=== PATIENT | female | born 1955 | race African-American/Black ===

== ENCOUNTER → 2019-07-10 | Emergency (ER) | payer MEDICARE ==
[2014-07-01 12:10] VITALS: BP 163/76
[~2019-07-10] MED LIST: ALBU2.5V14 NEB; ALBU2.5V8 IH; BUDE10.2 IH; CITA20TA6 PO; ERGO500027 PO; IPRA3AMP29 IH; LISI-375 PO; LORA10TA3 PO; METF500T16 PO; PRAV40TA2 PO; PROPOFOL 100 ML IV ONE; TRAM50TA PO
== END | disposition left against medical advice (07) ==
LOC: ER 10:06
DX: R41.82 Altered mental status, unspecified (principal); Z53.21 Procedure and treatment not carried out due to patient leaving prior to being seen by health care provider
CPT/HCPCS: 82947

== ENCOUNTER 2021-03-27 23:49 | Emergency (ER) | payer MEDICARE ==
[~2021-03-27] VITALS: Ht 162.6 cm; Wt 105.3 kg
[~2021-03-27 23:49] MED LIST changes: +ASPI-630 PO; +ATOR40TA59 PO; +CHOL400T36 PO; +DOCU-109 PO; +FURO40TA4 PO; +MELA10CA PO; +METO-239 PO; +MONT10TA80 PO; +MULT-47 PO; +OXYC5TAB4 PO; +PANT40TA6 PO; +POTA-121 PO; -PROPOFOL 100 ML IV ONE; +SPIR25TA5 PO; +VENL150C6 PO
--- NOTE | 2021-03-27 23:57 | PHYS DOC ---
Past History Past Medical History: Arthritis, Asthma, CAD, CHF, Constipation, COPD, Depression, Diabetes, Fibromyalgia, GERD, Hypertension, Hyperthyroid, UTI Past Surgical History: Coronary Bypass Surgery, Hysterectomy, Other Additional Past Surgical Histo: 2 Vessels, defibrillator, sweat glands, skin graft Smoking: Cigarettes, Quit Greater Than 1 Year Alcohol Use: None Drug Use: None General Adult HPI: HPI: ".. I am having some chest pain.. it goes into my mid back... been really short of breath.. more this last hour.. I know I got a bad heart... l usually follow at [facility] but I also been seen at [facility]... and ...and here.. It just more short of breath.. and the fast heart rate... ".. I have seen Dr. Piper in the past here .. or maybe it was at [facility]"... Patient is a 66 year old female who presents with above hx and complaints of tachycardia and increased dyspnea. Patient does have a past medical history of A. fib, coronary artery disease with coronary artery bypass grafting and stents. Patient also has placement of a defibrillator and pacer. Patient's bypass and's last stents was 07/11/2019. Patient does have a history of COPD, diabetes, coronary artery disease, A. fib, CHF, GERD, anxiety, hypertension, asthma, elevated cholesterol, chronic back pain and malaise. Patient denies any changes in meds. Patient denies any travel. Patient denies any specific ill contacts. Patient has currently following with Dr. Guevara at [facility] for cardiology and Dr. Vásquez for primary. Only change in medications have been stopping her potassium supplement. Patient does admit to some dietary noncompliance particularly for intake of fluids and diabetic precautions. Patient no longer smokes tobacco stopped approximately year ago after 40+ pack years. Patient notes she has not felt her defibrillator go off. Patient has completed COVID vaccination with Moderna x 2, 2nd in August, and Flu vaccination this fall last month while in the ICU here at [place]. Review of Systems: Review of Systems: Constitutional: Denies fever or chills Eyes: Denies change in visual acuity HENT: Denies nasal congestion or sore throat Respiratory: Complains of nonproductive cough and increased shortness of breath Cardiovascular: Complains of chest discomfort and increased edema GI: Denies abdominal pain, nausea, vomiting, bloody stools or diarrhea : Denies dysuria Musculoskeletal: Reports chronic back pain or joint pain Integument: Denies rash Neurologic: Denies headache, focal weakness or sensory changes Endocrine: Denies polyuria or polydipsia Lymphatic: Denies swollen glands Psychiatric: Reports anxiety Family History: Family History: Mother age 44 from complication from heart disease. Father from COPD and respiratory failure at age 69. Current Medications: Current Meds: See nursing for home meds. Allergies: Allergies: Allergies Coded Allergies Type Severity Reaction Last Updated Verified carvedilol Allergy Unknown 02/22/21 Yes Physical Exam: PE: Constitutional: Moderate acute distress, non-toxic appearance. [] HENT: Normocephalic, atraumatic, bilateral external ears normal, oropharynx moist, no oral exudates, nose normal. [] Eyes: PERRLA, EOMI, conjunctiva normal, no discharge. [] Neck: Normal range of motion, no tenderness, supple, no stridor. [] Patient has JVD in the sitting position. Patient unable to lay down because of shortness of breath. Cardiovascular: Tachycardia heart rate, irregular regular rhythm, no murmur, PMI to the left, monitor shows a A. fib pattern with rapid ventricular response in the 160s to 180 Lungs & Thorax: Bilateral breath sounds equal apex with scattered wheezes throughout and by basilar crackles on auscultation []. It has midline coronary artery by pass scar and pacer defibrillator left upper chest wall anterior. Abdomen: Bowel sounds normal, soft, no tenderness, no masses, no pulsatile masses. Obese. Old surgery scar.-History neurectomy Skin: Warm, mild diaphoretic, no erythema, no rash. Scars on both legs from skin grafts. Scars bilateral axillary Back: Chronic mid back tenderness, no CVA tenderness. [] Extremities: No tenderness, no cyanosis, no clubbing, ROM intact, bilateral lower leg 2+ edema. Scars on right knee Neurologic: Alert and oriented X 3, moves all extremities on request, does have distal sensory, no new focal deficits noted. [] Psychologic: Affect anxious, judgement normal, mood depressed EKG: EKG: My interpretation EKG shows a ventricular rate of 162 with A. fib. Rapid ventricular response-strain pattern. No pacer defibrillator findings. Time of EKG is 2357. [] Radiology/Procedures: Radiology/Procedures: [][address] [address] IMAGING REPORT Signed PATIENT: ELIU CARSON ACCOUNT: [id number] : 1955 LOCATION: ER AGE: 66 SEX: F EXAM STATUS: REG ER ORD. PHYSICIAN: CRISTINE MUÑOZ MD REASON: cp PROCEDURE: PORTABLE CHEST 1V XR CHEST 1V Clinical Indication: Reason: cp / Spl. Instructions: / History: Comparison: AP chest February 22, 2021. Findings: Median sternotomy wires. Left atrial appendage occlusion device. There is left chest dual-chamber ICD. The cardiac silhouette is stable. There are moderate bilateral interstitial opacities. There are small bilateral pleural effusions. There is no pneumothorax. IMPRESSION: 1. Moderate bilateral interstitial opacities may be pulmonary edema, pneumonia, or atelectasis. 2. Small bilateral pleural effusions. Electronically signed by: Archie Powell MD (03/28/2021 1:08 AM) [facility] DICTATED AND SIGNED BY: ARCHIE POWELL MD DATE: 03/28/21 010 CC: CRISTINE MUÑOZ MD; SHAILA BARRIOS MD ~MTH0 0 Heart Score: C/O Chest Pain: Yes HEART Score for Chest Pain: HEART Score for Chest Pain Response (Comments) Value History Highly Suspicious 2 ECG Nonspecific Repolarizatio 1 Age >45 - < 65 1 Risk Factors 1 or 2 Risk Factors 1 Troponin >1-<3x Normal Limit 1 Total 6 Risk Factors: Risk Factors: DM, Current or recent (<one month) smoker, HTN, HLP, family history of CAD, obesity. Risk Scores: Score 0 - 3: 2.5% MACE over next 6 weeks - Discharge Home Score 4 - 6: 20.3% MACE over next 6 weeks - Admit for Clinical Observation Score 7 - 10: 72.7% MACE over next 6 weeks - Early Invasive Strategies Course & Med Decision Making: Course & Med Decision Making Pertinent Labs and Imaging studies reviewed. (See chart for details) Patient's A. fib with rapid ventricular response ventricular rate lowered with Cardizem drip. This discussed presentation with Dr. Umaña. Patient requesting that here at [facility]. Discussed labs, chest xray ect. with pt. Pt. requesting admit here and no transfer. 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 0100 Am ( New time) Discussed presentation, testing and treatment plan with Dr. Umaña. Patient transferred to [facility] for further evaluation. Plan careful diuresis in light of her critical hypokalemia until transfer to [facility]. Critical care time 90 minutes. Impression: 1. A. fib with rapid ventricular response 2. Acute on chronic diastolic dysfunction BNP 6000 0 75 3. Critical hypokalemia 2.7 4. Hyponatremia 133 5. Diabetes glucose 275 6. Elevated AST and ALT and alk phos. 44/94/134 7. Elevated troponin += 110 8. Renal insufficiency BUN 23 creatinine 1.1 [] Emma Disclaimer: Emma Disclaimer: This electronic medical record was generated, in whole or in part, using a voice recognition dictation system. Departure Departure: Referrals: SHAILA BARRIOS MD (PCP) Emma Disclaimer This chart was dictated in whole or in part using Voice Recognition software in a busy, high-work load, and often noisy Emergency Department environment. It may contain unintended and wholly unrecognized errors or omissions. CRISTINE MUÑOZ MD Mar 27, 2021 23:57
[2021-03-28] MEDS ORDERED: IV NORMAL SALINE 100ML 100 ML ONE (00:32)
[2021-03-28 00:50] LABS: BASO % 0 % (0-3); EOS # 0.1 x10^3/uL (0.0-0.7); EOS % 1 % (0-3); HEMATOCRIT 38.3 % (36.0-47.0); HEMOGLOBIN 12.2 g/dL (12.0-15.5); LYMPH # 2.9 x10^3/uL (1.0-4.8); LYMPH % 35 % (24-48); MEAN CORPUSCULAR HEMOGLOBIN 27 pg (25-35); MEAN CORPUSCULAR HGB CONC 32 g/dL (31-37); MEAN CORPUSCULAR VOLUME 84 fL (79-100); MONO # 0.6 x10^3/uL (0.0-1.1); MONO % 7 % (0-9); NEUT # 4.9 x10^3uL (1.8-7.7); NEUT % 57 % (31-73); PLATELET COUNT 271 x10^3/uL (140-400); RED BLOOD COUNT 4.56 x10^6/uL (3.50-5.40); RED CELL DISTRIBUTION WIDTH 16.9 % (11.5-14.5); WHITE BLOOD COUNT 8.6 x10^3/uL (4.0-11.0)
[2021-03-28] MEDS: dilTIAZem 25 MG/5 ML VIAL IVP ONE (00:51)
[2021-03-28] MEDS: dilTIAZem VIAL 125 MG in IV NORMAL SALINE 100ML 100 ML IV ONE (00:52)
[2021-03-28] MEDS: ASPIRIN CHEWABLE 81 MG TABLET. PO ONE (00:52)
[2021-03-28 01:07] LABS: ALBUMIN 3.5 g/dL (3.4-5.0); CALCIUM 8.4 mg/dL (8.5-10.1); CREATININE 1.1 mg/dL (0.6-1.0); DIRECT BILIRUBIN 0.3 mg/dL (0.0-0.2); GFR 60.5; MAGNESIUM 1.7 mg/dL (1.8-2.4); TOTAL BILIRUBIN 0.7 mg/dL (0.2-1.0); TOTAL PROTEIN 6.7 g/dL (6.4-8.2)
[2021-03-28 01:11] LABS: POTASSIUM 2.7 mmol/L (3.5-5.1)
--- NOTE | 2021-03-28 01:11 | RAD ---
XR CHEST 1V Clinical Indication: Reason: cp / Spl. Instructions: / History: Comparison: AP chest February 22, 2021. Findings: Median sternotomy wires. Left atrial appendage occlusion device. There is left chest dual-chamber ICD . The cardiac silhouette is stable. There are moderate bilateral interstitial opacities. There are sm all bilateral pleural effusions. There is no pneumothorax. IMPRESSION: 1. Moderate bilateral interstitial opacities may be pulmonary edema, pneumonia, or atelectasis. 2. Small bilateral pleural effusions. Electronically signed by: Archie Powell MD (03/28/2021 1:08 AM) [facility]
--- NOTE | 2021-03-28 01:15 | EKG ---
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
[2021-03-28] MEDS: POTASSIUM CHLORIDE 20MEQ 100 ML IV SCH (01:26)
[2021-03-28] MEDS ORDERED: POTASSIUM CHLORIDE 20 MEQ TABLET.ER. PO ONE (01:29)
[2021-03-28] MEDS ORDERED: MAGNESIUM HYDROXIDE 2,400 MG/30 ML ORAL.SUSP. ONE (01:29)
[2021-03-28] MEDS: MAGNESIUM HYDROXIDE 2,400 MG/30 ML ORAL.SUSP. PO ONE (01:31)
[2021-03-28] MEDS: POTASSIUM CHLORIDE 20 MEQ TABLET.ER. PO ONE (01:31)
[2021-03-28] MEDS: POTASSIUM CHLORIDE 10MEQ 100 ML IV SCH (01:46)
[2021-03-28] MEDS: FUROSEMIDE 40 MG/4 ML VIAL IVP ONE (01:47)
[2021-03-28] MEDS: MORPHINE SULFATE 4 MG/ML DISP.SYRIN. IV ONE (01:47)
[2021-03-28] MEDS: ONDANSETRON PF 4 MG/2 ML VIAL. IVP ONE (02:08)
[2021-03-28 02:25] VITALS: BP 119/65
[2021-03-28] MEDS: ENOXAPARIN ** NOTE DOSE ** SYRINGE SQ ONE (02:30)
[2021-03-28 10:40] LABS: THYROID STIM HORMONE (TSH) 1.256 uIU/mL (0.358-3.740)
== END 2021-03-28 02:33 | disposition short-term general hospital (02) ==
LOC: MERGE 23:49 → ER 23:49
DX: I48.20 Chronic atrial fibrillation, unspecified (principal); E87.6 Hypokalemia; E87.1 Hypo-osmolality and hyponatremia; R77.8 Other specified abnormalities of plasma proteins; R79.89 Other specified abnormal findings of blood chemistry; N28.9 Disorder of kidney and ureter, unspecified; M19.90 Unspecified osteoarthritis, unspecified site; J44.9 Chronic obstructive pulmonary disease, unspecified; I25.810 Atherosclerosis of coronary artery bypass graft(s) without angina pectoris; I11.0 Hypertensive heart disease with heart failure; I50.9 Heart failure, unspecified; F32.9 Major depressive disorder, single episode, unspecified; E11.9 Type 2 diabetes mellitus without complications; M79.7 Fibromyalgia; K21.9 Gastro-esophageal reflux disease without esophagitis; E05.90 Thyrotoxicosis, unspecified without thyrotoxic crisis or storm; Z20.822 Contact with and (suspected) exposure to COVID-19; Z87.440 Personal history of urinary (tract) infections; Z87.891 Personal history of nicotine dependence; Z88.8 Allergy status to other drugs, medicaments and biological substances
CPT/HCPCS: 36415; 71045; 80048; 80061; 80076; 82550; 83690; 83735; 83880; 84443; 84484; 85025; 85379; 85610; 85730; 87426; 93005; 96365; 96366; 96368; 96372; 96375; 96376; 99285; C9803; J1650; J1940; J2270; J2405; J3480; J3490; U0003; 99291-25

== ENCOUNTER 2021-05-03 20:07 | Emergency (ER) | payer MEDICARE ==
[~2021-05-03] VITALS: Ht 162.6 cm; Wt 100.0 kg
--- NOTE | 2021-05-03 20:12 | PHYS DOC ---
Past History Past Medical History: Arthritis, Asthma, CAD, CHF, Constipation, COPD, Depression, Diabetes, Fibromyalgia, GERD, Hypertension, Hyperthyroid, UTI Past Surgical History: Coronary Bypass Surgery, Hysterectomy, Knee Replacement, Other Additional Past Surgical Histo: 2 Vessels, defibrillator, sweat glands, skin graft Smoking: Cigarettes, Quit Greater Than 1 Year Alcohol Use: None Drug Use: None Adult General HPI HPI Patient is a 66-year-old female who presents after a fall today after tripping on her house slippers. States that this is her third fall in the last few weeks. Denies any loss of consciousness, headaches, changes in vision, neck pain, numbness/weakness/tingling, trouble sitting, standing or walking. Endorses some central chest wall and lateral chest wall pain, 5 out of 10, dull and achy in nature and pain around her bellybutton, dull and achy in nature with no radiation. Denies any dyspnea on exertion, orthopnea, PND or edema. Denies any recent traumas other than the falls, travels, fevers, known ill contacts. States she is taking all her medications as prescribed but is not taking anything for anticoagulation. Review of Systems Review of Systems Review of systems otherwise unremarkable except noted in HPI Allergies Allergies Allergies Coded Allergies Type Severity Reaction Last Updated Verified carvedilol Allergy Unknown 03/29/21 Yes Physical Exam Physical Exam Constitutional: Well developed, well nourished, no acute distress, non-toxic appearance. [] HENT: Normocephalic, atraumatic, bilateral external ears normal, oropharynx moist, no oral exudates, nose normal. [] Eyes: PERRLA, EOMI, conjunctiva normal, no discharge. [] Neck: Normal range of motion, no tenderness, supple, no stridor. [] Cardiovascular:Heart rate regular rhythm, no murmur [] Lungs & Thorax: Bilateral breath sounds clear to auscultation, tenderness to palpation over the sternum lateral left rib cage [] Abdomen: soft, mild umbilical tenderness with no rebound or guarding, no masses, no pulsatile masses. [] Skin: Warm, dry, no erythema, no rash. [] Back: No tenderness, no CVA tenderness. [] Extremities: No tenderness, no cyanosis, no clubbing, ROM intact, no edema. [] Neurologic: Alert and oriented X 3, normal motor function, normal sensory function, able to sit, stand and walk without issue no focal deficits noted. [] Psychologic: Affect normal, judgement normal, mood normal. [] EKG EKG [] Radiology/Procedures Radiology/Procedures [] CT chest without contrast: There is peripheral linear opacities in the lungs bilaterally. There is previous median sternotomy. There is a tiny effusion on the right. There is no mediastinal lymphadenopathy or hematoma. There is no hilar lymphadenopathy. Impression: 1. Tiny right pleural effusion. 2. Mild bilateral infiltrates likely discoid atelectasis. End Impression CT ABDOMEN and pelvis without IV CONTRAST: Findings: Liver: Unremarkable Spleen: Unremarkable Pancreas: Unremarkable Adrenal Glands: Unremarkable Kidneys: Since bilaterally Evaluation of stomach and bowel is limited without oral contrast. Evaluation of solid organs is limited without IV contrast. There is no mass or lymphadenopathy. There is no free air. There is no free fluid. The bladder appears normal. The gallbladder is not fully distended with a slight amount of fluid around the gallbladder. The appendix is normal. Impression: Possible minimal pericholecystic fluid but no stones or wall thickening seen. End impression Heart Score C/O Chest Pain: No Risk Factors: Risk Factors: DM, Current or recent (<one month) smoker, HTN, HLP, family history of CAD, obesity. Risk Scores: Risk Factors: DM, Current or recent (<one month) smoker, HTN, HLP, family history of CAD, obesity. Course & Med Decision Making Course & Med Decision Making Patient is a 66-year-old female who presents after a fall Vital signs not concerning. Physical exam noted above. Placed on the monitor with IV access established. Given pain medicine. Laboratory analysis not concerning. CT of the head not concerning. CT of the chest abdomen and pelvis with tiny right pleural effusion and discoid atelectasis. On reassessment patient feeling better after pain medicine. Discussed all findings with family. Advised on symptom management at home. Advised to follow-up in the morning with primary care physician. Gave strict return precautions to the ED. Patient grateful, verbalized understanding and agreed with plan of discharge. [] Dragon Disclaimer Dragon Disclaimer This electronic medical record was generated, in whole or in part, using a voice recognition dictation system. Departure Departure: Impression: Primary Impression: Fall Additional Impressions: Chest wall pain Abdominal pain Pleural effusion Disposition: HOME / SELF CARE / HOMELESS Condition: GOOD Referrals: SHAILA BARRIOS MD (PCP) Patient Instructions: Fall Prevention and Home Safety, Pleural Effusion, RICE - Routine Care for Injuries Additional Instructions: Thank you for coming into the emergency department tonight and allowing us to take care of you. Please read the attached information carefully to go back over some of the things we discussed. Please continue all your medications at home as prescribed. You can use Tylenol at home as needed and tolerated. If you are allowed to take ibuprofen, not allergic and are able to tolerated she can add ibuprofen as well. He can also use ice. It is very important that you follow-up in the morning with the primary care physician to update on your ED visit and set up a follow-up as soon as you can. Please come back with new or concerning symptoms. Problem Qualifiers JODY NEELY MD May 03, 2021 20:11
[2021-05-03] MEDS ORDERED: ACETAMINOPHEN 500 MG TABLET PO ONE (21:15)
--- NOTE | 2021-05-03 22:07 | RAD ---
CT chest abdomen and pelvis without contrast: History: Pain status post fall Axial helical images of the chest, abdomen and pelvis were obtained without IV contrast. Comparison: none CT chest without contrast: There is peripheral linear opacities in the lungs bilaterally. There is previous median sternotomy. T here is a tiny effusion on the right. There is no mediastinal lymphadenopathy or hematoma. There is no hilar lymphadenopathy. Impression: 1. Tiny right pleural effusion. 2. Mild bilateral infiltrates likely discoid atelectasis. End Impression CT ABDOMEN and pelvis without IV CONTRAST: Findings: Liver: Unremarkable Spleen: Unremarkable Pancreas: Unremarkable Adrenal Glands: Unremarkable Kidneys: Since bilaterally Evaluation of stomach and bowel is limited without oral contrast. Evaluation of solid organs is limit ed without IV contrast. There is no mass or lymphadenopathy. There is no free air. There is no free fluid. The bladder appears normal. The gallbladder is not fully distended with a slight amount of fluid around the gallbladder. The appendix is normal. Impression: Possible minimal pericholecystic fluid but no stones or wall thickening seen. End impression PQRS Compliance Statement: One or more of the following individualized dose reduction techniques were utilized for this examinat ion: 1. Automated exposure control 2. Adjustment of the mA and/or kV according to patient size 3. Use of iterative reconstruction technique Electronically signed by: Akash Givens III, MD (05/03/2021 10:05 PM) [facility]
[2021-05-03 22:11] LABS: BASO # 0.1 x10^3/uL (0.0-0.2); BASO % 1 % (0-3); EOS # 0.1 x10^3/uL (0.0-0.7); EOS % 3 % (0-3); HEMATOCRIT 36.4 % (36.0-47.0); HEMOGLOBIN 11.4 g/dL (12.0-15.5); LYMPH # 1.3 x10^3/uL (1.0-4.8); LYMPH % 27 % (24-48); MEAN CORPUSCULAR HEMOGLOBIN 26 pg (25-35); MEAN CORPUSCULAR HGB CONC 31 g/dL (31-37); MEAN CORPUSCULAR VOLUME 83 fL (79-100); MONO # 0.4 x10^3/uL (0.0-1.1); MONO % 8 % (0-9); NEUT # 2.8 x10^3uL (1.8-7.7); NEUT % 61 % (31-73); PLATELET COUNT 268 x10^3/uL (140-400); RED BLOOD COUNT 4.38 x10^6/uL (3.50-5.40); RED CELL DISTRIBUTION WIDTH 17.8 % (11.5-14.5); WHITE BLOOD COUNT 4.6 x10^3/uL (4.0-11.0)
[2021-05-03 22:19] LABS: CREATININE 1.5 mg/dL (0.6-1.0); GFR 42.3; POTASSIUM 4.5 mmol/L (3.5-5.1)
--- NOTE | 2021-05-03 23:09 | RAD ---
EXAM: CT Head without IV contrast CLINICAL HISTORY: Reason: fall / Spl. Instructions: / History: COMPARISON: None. TECHNIQUE: Routine CT of the head without contrast. PQRS compliance statement - One or more of the following individualized dose reduction techniques wer e utilized for this study: 1. Automated exposure control 2. Adjustment of the mA and/or kV according to patient size 3. Use of iterative reconstruction technique FINDINGS: There is no evidence of hemorrhage, mass or extra-axial fluid collection. Garcia-white differentiation is maintained with no evidence of edema. There is no mass effect or shift of the intracranial structures. The ventricles, basilar cisterns and cortical sulci are normal in size and configuration for the singh ents stated age. The cerebellum and brainstem are unremarkable. The calvarium demonstrates no evidence of fracture or focal lesion. There is normal aeration of the visualized paranasal sinuses and mastoid air cells. The visualized portions of the orbits are normal. IMPRESSION: No evidence for acute intracranial process. Electronically signed by: Yoshi Hood MD (05/03/2021 11:07 PM) [facility]
[2021-05-03] MEDS ORDERED: oxyCODONE IR 5 MG TABLET PO ONE (23:15)
[2021-05-03 23:30] VITALS: BP 107/60
--- NOTE | 2021-05-04 08:23 | EKG ---
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
== END 2021-05-03 23:30 | disposition home or self-care (01) ==
LOC: ER 20:07
DX: R07.89 Other chest pain (principal); R10.33 Periumbilical pain; J90 Pleural effusion, not elsewhere classified; M19.90 Unspecified osteoarthritis, unspecified site; I25.810 Atherosclerosis of coronary artery bypass graft(s) without angina pectoris; I11.9 Hypertensive heart disease without heart failure; I50.9 Heart failure, unspecified; J44.9 Chronic obstructive pulmonary disease, unspecified; E11.9 Type 2 diabetes mellitus without complications; M79.7 Fibromyalgia; E03.9 Hypothyroidism, unspecified; Z87.440 Personal history of urinary (tract) infections; Z90.710 Acquired absence of both cervix and uterus; Z88.8 Allergy status to other drugs, medicaments and biological substances; W18.09XA Striking against other object with subsequent fall, initial encounter; Y93.89 Activity, other specified; Y92.89 Other specified places as the place of occurrence of the external cause; Y99.8 Other external cause status
CPT/HCPCS: 36415; 70450; 71250; 74176; 80048; 84484; 85025; 93005; 96372; 99285; J3010

== ENCOUNTER 2021-05-04 22:50 | Emergency (ER) | payer MEDICARE ==
[~2021-05-04] VITALS: Ht 162.6 cm; Wt 100.0 kg
--- NOTE | 2021-05-04 23:24 | PHYS DOC ---
Past History Past Medical History: Arthritis, Asthma, CAD, CHF, Constipation, COPD, Depression, Diabetes, Fibromyalgia, GERD, Hypertension, Hyperthyroid, UTI (CRISTINE MUÑOZ MD) Past Surgical History: Hysterectomy, Knee Replacement, Other Additional Past Surgical Histo: defibrillator, EGD, CABG (CRISTINE MUÑOZ MD) Smoking: Cigarettes, Quit Greater Than 1 Year Alcohol Use: None Drug Use: None (CRISTINE MUÑOZ MD) General Adult HPI: HPI: Patient is a 66 year old female who presents with above hx and complaints. See charting by Wilmer Turner for this pt. (CRISTINE MUÑOZ MD) Review of Systems: Review of Systems: Constitutional: Denies fever or chills Eyes: Denies change in visual acuity HENT: Denies nasal congestion or sore throat Respiratory: Denies cough or shortness of breath Cardiovascular: Denies chest pain or edema GI: Denies abdominal pain, nausea, vomiting, bloody stools or diarrhea : Denies dysuria Musculoskeletal: Denies back pain or joint pain Integument: Denies rash Neurologic: Denies headache, focal weakness or sensory changes Endocrine: Denies polyuria or polydipsia Lymphatic: Denies swollen glands Psychiatric: Denies depression or anxiety (CRISTINE MUÑOZ MD) Allergies: Allergies: Allergies Coded Allergies Type Severity Reaction Last Updated Verified carvedilol Allergy Unknown 05/03/21 Yes (CRISTINE MUÑOZ MD) Physical Exam: PE: Constitutional: Well developed, well nourished, no acute distress, non-toxic appearance. [] HENT: Normocephalic, atraumatic, bilateral external ears normal, oropharynx moist, no oral exudates, nose normal. [] Eyes: PERRLA, EOMI, conjunctiva normal, no discharge. [] Neck: Normal range of motion, no tenderness, supple, no stridor. [] Cardiovascular:Heart rate regular rhythm, no murmur [] Lungs & Thorax: Bilateral breath sounds clear to auscultation [] Abdomen: Bowel sounds normal, soft, no tenderness, no masses, no pulsatile masses. [] Skin: Warm, dry, no erythema, no rash. [] Back: No tenderness, no CVA tenderness. [] Extremities: No tenderness, no cyanosis, no clubbing, ROM intact, no edema. [] Neurologic: Alert and oriented X 3, normal motor function, normal sensory function, no focal deficits noted. [] Psychologic: Affect normal, judgement normal, mood normal. [] (CRISTINE MUÑOZ MD) EKG: EKG: [] (CRISTINE MUÑOZ MD) Radiology/Procedures: Radiology/Procedures: [] (CRISTINE MUÑOZ MD) Heart Score: Risk Factors: Risk Factors: DM, Current or recent (<one month) smoker, HTN, HLP, family history of CAD, obesity. Risk Scores: Score 0 - 3: 2.5% MACE over next 6 weeks - Discharge Home Score 4 - 6: 20.3% MACE over next 6 weeks - Admit for Clinical Observation Score 7 - 10: 72.7% MACE over next 6 weeks - Early Invasive Strategies (CRISTINE MUÑOZ MD) Course & Med Decision Making: Course & Med Decision Making Pertinent Labs and Imaging studies reviewed. (See chart for details) [] (CRISTINE MUÑOZ MD) Dragon Disclaimer: Dragon Disclaimer: This electronic medical record was generated, in whole or in part, using a voice recognition dictation system. (CRISTINE MUÑOZ MD) Departure Departure: Referrals: SHAILA BARRIOS MD (PCP) CRISTINE MUÑOZ MD May 04, 2021 23:24 OLGA TURNER May 04, 2021 23:52
[2021-05-04 23:31] VITALS: BP 123/74
--- NOTE | 2021-05-04 23:57 | PHYS DOC ---
Past History Past Medical History: Arthritis, Asthma, CAD, CHF, Constipation, COPD, Depression, Diabetes, Fibromyalgia, GERD, Hypertension, Hyperthyroid, UTI Additional Past Medical Histor: chronic pain (OLGA TURNER) Past Surgical History: Hysterectomy, Knee Replacement, Other Additional Past Surgical Histo: defibrillator, EGD, CABG, right rotator cuff (OLGA TURNER) Smoking: Cigarettes, Quit Greater Than 1 Year Alcohol Use: None Drug Use: None (OLGA TURNER) General Adult EDM: Chief Complaint: MULTIPLE COMPLAINTS HPI: HPI: Patient is a 66 year old female who presents with bilateral shoulder pain. Patient rates her pain as severe and stops her from sleeping. She was seen in the emergency department yesterday status post mechanical fall secondary to low traction slippers on the stairs. Her imaging studies and work-up yesterday were reassuring, but she returns today due to persistent pain. Patient reports she takes oxycodone 5325 3 times daily for chronic pain. She reports right rotator cuff surgery in the past with deferred left rotator cuff surgery. She is unsure why the left was never performed. Patient is joined in the emergency department by her daughter. (OLGA TURNER) Review of Systems: Review of Systems: Constitutional: Denies fever or chills Eyes: Denies change in visual acuity or visual field deficits HENT: Denies nasal congestion or sore throat Respiratory: Denies cough or shortness of breath Cardiovascular: Denies chest pain or edema GI: Denies abdominal pain, nausea, vomiting, bloody stools or diarrhea : Denies dysuria or hematuria Musculoskeletal: See HPI Integument: Denies rash or other skin lesion Neurologic: Denies headache, focal weakness or sensory changes (OLGA TURNER) Current Medications: Current Meds: Current Medications Medications (Trade) Dose Ordered Sig/Jacqueline Start Time Stop Time Status Last Admin Dose Admin Ketorolac Tromethamine (Toradol 30mg Vial) 30 mg 1X ONCE 05/05/21 00:00 05/05/21 00:01 UNV Orphenadrine Citrate (Norflex) 60 mg 1X ONCE 05/05/21 00:00 05/05/21 00:01 UNV (OLGA TURNER) Allergies: Allergies: Allergies Coded Allergies Type Severity Reaction Last Updated Verified carvedilol Allergy Unknown 05/04/21 Yes (OLGA TURNER) Physical Exam: PE: Constitutional: Well developed, well nourished, patient is tearful during interview, non-toxic appearance. HENT: Normocephalic, atraumatic, bilateral external ears normal, oropharynx moist, no oral exudates, nose without deformity. Eyes: PERRLA, EOMI, conjunctiva normal, no discharge. Neck: Normal range of motion, no tenderness, supple, no stridor. Cardiovascular: Heart rate regular rhythm, no murmur. Lungs & Thorax: Bilateral breath sounds clear to auscultation. Back: No tenderness, no CVA tenderness. Extremities: Patient active range of motion limited secondary to reported pain in bilateral shoulders, passive range of motion intact and patient actively resists movement in opposite direction with 5/5 strength, no obvious deformities. Extremities otherwise no tenderness, no cyanosis, no clubbing, ROM intact, no edema. Neurovascular intact in extremities x4. Neurologic: Alert and oriented x4, no focal deficits noted. (OLGA TURNER) Current Patient Data: Vital Signs: Vital Signs Date Time Temp Pulse Resp B/P (MAP) Pulse Ox O2 Delivery O2 Flow Rate FiO2 05/04/21 23:31 98.2 18 123/74 (90) 95 (OLGA TURNER) Heart Score: C/O Chest Pain: No (OLGA TURNER) Course & Med Decision Making: Course & Med Decision Making Pertinent Labs and Imaging studies reviewed. (See chart for details) Patient was seen yesterday in the department with an unremarkable work-up. She presents today for persistent pain. She was informed on discharge yesterday that she would likely have some muscle soreness after her fall. Patient reports she is tired of being in chronic pain and is somewhat uncooperative. I offered her several different potential medications that might help including muscle relaxer and NSAID, which would not interfere with her daily oxycodone use. Patient is not agreeable to any of these medications, she states she has taken them in the past and they do not do anything for her pain. Had a long discussion about the patient's goals for her visit today. Eventually, with discussion with her daughter at bedside and myself, she agrees to try the combination of NSAID with muscle relaxer to help treat her pain after her fall yesterday. When Denise, nursing staff, administered medications, patient states that she ran out of her oxycodone prescription today. She is supposed to take 1 at bedtime, but does not have any more at home. She is picking up her new prescription tomorrow morning. She will be provided with 1 tablet here in the department. On reevaluation, patient states her pain is improved. She continues to have right-sided shoulder pain, but left is nearly resolved. Discussed with the patient that her pain level will not be 0, especially due to the nature of her chronic pain and prior surgeries. Discussed with patient providing prescription for muscle relaxer for the next few days, as she recovers from the fall. Patient is agreeable. Patient and daughter at bedside understand and are agreeable to discharge plan. (OLGA TURNER) Dragon Disclaimer: Dragon Disclaimer: This electronic medical record was generated, in whole or in part, using a voice recognition dictation system. (OLGA TURNER) Departure Departure: Impression: Primary Impression: Chronic pain of multiple sites Disposition: 01 HOME / SELF CARE / HOMELESS Condition: STABLE Referrals: SHAILA BARRIOS MD (PCP) Patient Instructions: Chronic Pain Management-Brief, Contusion, [id number], Fall Prevention and Home Safety, [id number] Scripts Orphenadrine Citrate (ORPHENADRINE CITRATE) 100 Mg Tablet.er 1 TAB PO BID for muscle pain, #10 TAB 1 Refill Prov: OLGA TURNER 05/05/21 Attending Signature Attending Signature I have participated in the care of this patient and I have reviewed and agree with all pertinent clinical information above including history, exam, and recommendations. (CRISTINE MUÑOZ MD) OLGA TURNER May 04, 2021 23:57 CRISTINE MUÑOZ MD May 05, 2021 07:29
[2021-05-05] MEDS ORDERED: ORPHENADRINE CITRATE 60 MG/2 ML VIAL. IM ONE
[2021-05-05] MEDS ORDERED: KETOROLAC 30 MG/ML VIAL. IM ONE
[2021-05-05] MEDS ORDERED: oxyCODONE/APAP 5/325 1 TAB TABLET PO ONE (00:30)
[2021-05-05] MEDS ORDERED: ORPH-16 PO (00:39)
== END 2021-05-05 00:53 | disposition home or self-care (01) ==
LOC: ER 22:50
DX: G89.29 Other chronic pain (principal); M25.511 Pain in right shoulder; M25.512 Pain in left shoulder; M19.90 Unspecified osteoarthritis, unspecified site; J44.9 Chronic obstructive pulmonary disease, unspecified; I11.0 Hypertensive heart disease with heart failure; I50.9 Heart failure, unspecified; E11.9 Type 2 diabetes mellitus without complications; M79.7 Fibromyalgia; K21.9 Gastro-esophageal reflux disease without esophagitis; E03.9 Hypothyroidism, unspecified; I25.810 Atherosclerosis of coronary artery bypass graft(s) without angina pectoris; Z87.440 Personal history of urinary (tract) infections; Z87.891 Personal history of nicotine dependence; Z88.8 Allergy status to other drugs, medicaments and biological substances
CPT/HCPCS: 96372; 99284; J1885; J2360

== ENCOUNTER 2021-07-18 22:02 | Emergency (ER) | payer MEDICARE ==
[~2021-07-18] VITALS: Ht 162.6 cm; Wt 93.5 kg
[~2021-07-18 22:02] MED LIST changes: +CLOP75TA PO; +FURO20TA3 PO; +METO50TA6 PO; +ORPH-16 PO; +OXYC5TAB2 PO
--- NOTE | 2021-07-18 22:46 | PHYS DOC ---
Past History Past Medical History: Arthritis, Asthma, CAD, CHF, Constipation, COPD, Depression, Diabetes, Fibromyalgia, GERD, Hypertension, Hyperthyroid, UTI Additional Past Medical Histor: chronic pain Past Surgical History: Other Additional Past Surgical Histo: defibrillator, EGD, CABG, right rotator cuff Smoking: Cigarettes, Quit Greater Than 1 Year Alcohol Use: None Drug Use: None General Adult EDM: Chief Complaint: SHORTNESS OF BREATH HPI: HPI: 66-year-old female presents with shortness of breath. The patient has been feeling more tired for a few days. She has also had some lower extremity swelling. She is on Lasix for this. The patient was getting home and going into the house around 8 PM tonight when she just felt significantly more short of breath and could not go any further. That is when she called EMS. Patient is currently taking antibiotic for gastric paresis as well as pneumonia. She has 2 days left on her pneumonia treatment. She has a history of COPD and CHF. The patient is on as needed 4 L of oxygen at home. She does not have to use it all the time. Patient states that her shortness of breath seems to be better at this time, but she does have an occipital headache and feels fatigued. She denies chest pain. No reported fever or chills. Review of Systems: Review of Systems: Constitutional: Denies fever or chills Eyes: Denies change in visual acuity HENT: Denies nasal congestion or sore throat Respiratory: Shortness of breath Cardiovascular: Denies chest pain or edema GI: Denies abdominal pain, nausea, vomiting, bloody stools or diarrhea : Denies dysuria Musculoskeletal: Denies back pain or joint pain Integument: Denies rash Neurologic: Headache. Denies focal weakness or sensory changes Endocrine: Denies polyuria or polydipsia Lymphatic: Denies swollen glands Psychiatric: Denies depression or anxiety Allergies: Allergies: Allergies Coded Allergies Type Severity Reaction Last Updated Verified carvedilol Allergy Intermediate 07/04/21 Yes Physical Exam: PE: Constitutional: Well developed, well nourished, obese, no acute distress, non- toxic appearance. [] HENT: Normocephalic, atraumatic, bilateral external ears normal, oropharynx moist, no oral exudates, nose normal. [] Eyes: PERRLA, EOMI, conjunctiva normal, no discharge. [] Neck: Normal range of motion, no tenderness, supple, no stridor. [] Cardiovascular: Heart rate regular rhythm, 1/6 systolic murmur [] Lungs & Thorax: Bilateral breath sounds diminished [] Abdomen: Bowel sounds normal, soft, no tenderness, no masses, no pulsatile masses. [] Skin: Warm, dry, no erythema, no rash. [] Back: No tenderness, no CVA tenderness. [] Extremities: No tenderness, no cyanosis, no clubbing, ROM intact, no edema. [] Neurologic: Alert and oriented X 3, normal motor function, normal sensory function, no focal deficits noted. [] Psychologic: Affect normal, judgement normal, mood normal. [] Current Patient Data: Vital Signs: Vital Signs Date Time Temp Pulse Resp B/P (MAP) Pulse Ox O2 Delivery O2 Flow Rate FiO2 07/18/21 22:02 97.9 75 17 124/63 (83) 100 Room Air EKG: EKG: Sinus rhythm, rate 83, leftward axis, no ST elevation or depression. [] Radiology/Procedures: Radiology/Procedures: [] Impressions: EXAM: XR CHEST 1V 07/18/2021 10:31 PM CLINICAL INDICATION: Shortness of breath COMPARISON: Chest radiograph 07/04/2021 TECHNIQUE: AP upright view of the chest FINDINGS: A pacemaker/AICD is unchanged. There are changes of median sternotomy and a left atrial appendage ligation device. Cardiomegaly and enlarged main pulmonary artery are unchanged. The lungs are well-expanded and clear. No pleural effusion or pneumothorax. No pulmonary edema. IMPRESSION: Unchanged cardiomegaly and enlarged pulmonary artery. Electronically signed by: Lindsey Morgan MD (07/19/2021 12:03 AM) [facility] DICTATED AND SIGNED BY: LINDSEY MORGAN MD DATE: 07/19/21 0001 CC: JADIEL PRIETO DO; SHAILA BARRIOS MD ~MTH0 0 Heart Score: C/O Chest Pain: No Risk Factors: Risk Factors: DM, Current or recent (<one month) smoker, HTN, HLP, family history of CAD, obesity. Risk Scores: Score 0 - 3: 2.5% MACE over next 6 weeks - Discharge Home Score 4 - 6: 20.3% MACE over next 6 weeks - Admit for Clinical Observation Score 7 - 10: 72.7% MACE over next 6 weeks - Early Invasive Strategies Course & Med Decision Making: Course & Med Decision Making Pertinent Labs and Imaging studies reviewed. (See chart for details) The patient's chest x-ray is similar to previous. EKG is negative for acute findings. Patient's labs are unremarkable. Her troponin is negative. Patient is feeling better at this time. She is not sure why she was feeling so short of breath. She has had a normal oxygen saturation on room air the entire time the emergency room. The patient feels comfortable going home. She is stable for discharge at this time. [] Dragon Disclaimer: Dragon Disclaimer: This electronic medical record was generated, in whole or in part, using a voice recognition dictation system. Departure Departure: Impression: Primary Impression: Shortness of breath Disposition: 01 HOME / SELF CARE / HOMELESS Condition: STABLE Referrals: SHAILA BARRIOS MD (PCP) Patient Instructions: Shortness of Breath, [id number] JADIEL PRIETO DO Jul 18, 2021 22:45
--- NOTE | 2021-07-18 22:53 | EKG ---
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
[2021-07-18 23:49] LABS: CLARITY,URINE CLEAR; COLOR,URINE YELLOW; GLUCOSE,URINE NEG (NEG)
[2021-07-18 23:50] LABS: BACTERIA,URINE FEW /HPF (0-FEW); NITRITE,URINE NEG (NEG); SQUAMOUS EPITHELIAL CELL,UR MOD /LPF
--- NOTE | 2021-07-19 00:06 | RAD ---
EXAM: XR CHEST 1V 07/18/2021 10:31 PM CLINICAL INDICATION: Shortness of breath COMPARISON: Chest radiograph 07/04/2021 TECHNIQUE: AP upright view of the chest FINDINGS: A pacemaker/AICD is unchanged. There are changes of median sternotomy and a left atrial ap pendage ligation device. Cardiomegaly and enlarged main pulmonary artery are unchanged. The lungs are well-expanded and clear. No pleural effusion or pneumothorax. No pulmonary edema. IMPRESSION: Unchanged cardiomegaly and enlarged pulmonary artery. Electronically signed by: Lindsey Morgan MD (07/19/2021 12:03 AM) [facility]
[2021-07-19 01:13] LABS: CALCIUM 8.4 mg/dL (8.5-10.1); CREATININE 1.1 mg/dL (0.6-1.0); GFR 60.5; POTASSIUM 3.3 mmol/L (3.5-5.1)
[2021-07-19 01:18] LABS: ALBUMIN 2.9 g/dL (3.4-5.0); ALBUMIN/GLOBULIN RATIO 0.8 (1.0-1.7); TOTAL BILIRUBIN 2.2 mg/dL (0.2-1.0); TOTAL PROTEIN 6.4 g/dL (6.4-8.2)
[2021-07-19 01:30] LABS: BASO % 1 % (0-3); EOS # 0.2 x10^3/uL (0.0-0.7); EOS % 4 % (0-3); HEMATOCRIT 37.6 % (36.0-47.0); HEMOGLOBIN 12.1 g/dL (12.0-15.5); LYMPH # 1.4 x10^3/uL (1.0-4.8); LYMPH % 34 % (24-48); MEAN CORPUSCULAR HEMOGLOBIN 26 pg (25-35); MEAN CORPUSCULAR HGB CONC 32 g/dL (31-37); MEAN CORPUSCULAR VOLUME 81 fL (79-100); MONO # 0.3 x10^3/uL (0.0-1.1); MONO % 8 % (0-9); NEUT # 2.2 x10^3uL (1.8-7.7); NEUT % 53 % (31-73); PLATELET COUNT 238 x10^3/uL (140-400); RED BLOOD COUNT 4.64 x10^6/uL (3.50-5.40); RED CELL DISTRIBUTION WIDTH 22.2 % (11.5-14.5)
[2021-07-19 02:01] LABS: ANISOCYTOSIS MARKED
[2021-07-19 02:03] LABS: SCHISTOCYTES MANY
[2021-07-19 02:05] LABS: BURR CELLS PRESENT
[2021-07-19 02:06] LABS: HYPOCHROMIA SLIGHT; MICROCYTOSIS SLIGHT; TARGET CELLS OCC
[2021-07-19 02:07] LABS: PLT ESTIMATE ADEQUATE (ADEQUATE)
[2021-07-19 02:50] VITALS: BP 126/68
== END 2021-07-19 02:55 | disposition home or self-care (01) ==
LOC: ER 22:02
DX: R06.02 Shortness of breath (principal); R51.9 Headache, unspecified; R53.83 Other fatigue; M19.90 Unspecified osteoarthritis, unspecified site; I25.10 Atherosclerotic heart disease of native coronary artery without angina pectoris; I11.0 Hypertensive heart disease with heart failure; I50.9 Heart failure, unspecified; J44.9 Chronic obstructive pulmonary disease, unspecified; E11.9 Type 2 diabetes mellitus without complications; M79.7 Fibromyalgia; K21.9 Gastro-esophageal reflux disease without esophagitis; E05.90 Thyrotoxicosis, unspecified without thyrotoxic crisis or storm; G89.29 Other chronic pain; Z87.440 Personal history of urinary (tract) infections; Z87.891 Personal history of nicotine dependence; Z88.8 Allergy status to other drugs, medicaments and biological substances
CPT/HCPCS: 36415; 71045; 80053; 81001; 84484; 85025; 87077; 87086; 87186; 93005; 99285

== ENCOUNTER 2021-08-06 05:44 | Inpatient (IN) | payer MEDICARE ==
[~2021-08-06] VITALS: Ht 162.6 cm; Wt 88.6 kg
[~2021-08-06 05:44] MED LIST changes: +CHOL10004 PO; +ERYT250T89 PO; +POTA20TA40 PO
--- NOTE | 2021-08-06 06:33 | PHYS DOC ---
Past History Past Medical History: Arthritis, Asthma, CAD, CHF, Constipation, COPD, Depression, Diabetes, Fibromyalgia, GERD, Hypertension, Hyperthyroid, UTI Additional Past Medical Histor: chronic pain Past Surgical History: Coronary Bypass Surgery, Other Additional Past Surgical Histo: defibrillator, EGD, CABG, right rotator cuff Smoking: Cigarettes, Quit Greater Than 1 Year Alcohol Use: None Drug Use: None General Adult EDM: Chief Complaint: SHORTNESS OF BREATH HPI: HPI: Patient is a 66-year-old female coming in for shortness of breath since waking this morning. Patient states she uses a CPAP at night and it was working properly. Patient denies a cough. Patient states she has had worsening lower extremity edema and foot pain that is worse on the right. Was recently hospitalized for similar symptoms. Review of Systems: Review of Systems: All other systems within normal limits except for as noted in the HPI Allergies: Allergies: Allergies Coded Allergies Type Severity Reaction Last Updated Verified carvedilol Allergy Intermediate 07/04/21 Yes I S O L A T I O N *CONTACT* Allergy Unknown 07/21/21 Yes Physical Exam: PE: Constitutional: Well developed, well nourished, no acute distress, non-toxic appearance. [] HENT: Normocephalic, atraumatic, bilateral external ears normal, nose normal. [] Eyes: PERRLA, conjunctiva normal, no discharge. [] Neck: No rigidity, supple, no stridor. [] Cardiovascular: Regular rate and rhythm, brisk cap refill [] Lungs & Thorax: Non labored symmetric respirations, bilateral expiratory wheezes Abdomen: Soft, nondistended. Skin: Warm, dry, no erythema, no rash. [] Back: Unremarkable Extremities: No deformities, range of motion grossly intact, bilateral lower extremity edema worse on right Neurologic: Alert and oriented X 3, no focal deficits noted. [] Psychologic: Affect normal, judgement normal, mood normal. [] Current Patient Data: Vital Signs: Vital Signs Date Time Temp Pulse Resp B/P (MAP) Pulse Ox O2 Delivery O2 Flow Rate FiO2 08/06/21 05:44 97.6 130 36 155/101 (119) 98 Aerosol Mask EKG: EKG: Sinus rhythm, heart rate 120 beats minute, left axis deviation, no STEMI [] Radiology/Procedures: Radiology/Procedures: [][address] [place] [address] IMAGING REPORT Signed PATIENT: ELIU CARSON ACCOUNT: [id number] : 1955 LOCATION: ER AGE: 66 SEX: F EXAM STATUS: REG ER ORD. PHYSICIAN: MATT BARNES MD REASON: copd PROCEDURE: CHEST AP ONLY AP chest. HISTORY: COPD AP view of the chest was compared with a study from July 28. The heart is enlarged. Left pacemaker is unchanged. There are right lung infiltrates. There is a right pleural effusion. There has been little interval change compared to the recent study. IMPRESSION: 1. Cardiomegaly. 2. Small right effusion. 3. Mild right lung infiltrates without change. Electronically signed by: Darrell Meyer MD (08/06/2021 7:20 AM) [id number] DICTATED AND SIGNED BY: DARRELL MEYER MD DATE: 08/06/21717 CC: MATT BARNES MD; SHAILA BARRIOS MD ~ Heart Score: C/O Chest Pain: Yes HEART Score for Chest Pain: HEART Score for Chest Pain Response (Comments) Value History Slighlty/Non-Suspicious 0 ECG Nonspecific Repolarizatio 1 Age >45 - < 65 1 Risk Factors >3 Risk Factors or Hx CAD 2 Troponin < Normal Limit 0 Total 4 Risk Factors: Risk Factors: DM, Current or recent (<one month) smoker, HTN, HLP, family history of CAD, obesity. Risk Scores: Score 0 - 3: 2.5% MACE over next 6 weeks - Discharge Home Score 4 - 6: 20.3% MACE over next 6 weeks - Admit for Clinical Observation Score 7 - 10: 72.7% MACE over next 6 weeks - Early Invasive Strategies Course & Med Decision Making: Course & Med Decision Making Pertinent Labs and Imaging studies reviewed. (See chart for details) [] Emma Disclaimer: Emma Disclaimer: This electronic medical record was generated, in whole or in part, using a voice recognition dictation system. Departure Departure: Impression: Primary Impression: Acute on chronic systolic CHF (congestive heart failure) Additional Impressions: Pneumonia Elevated d-dimer COPD (chronic obstructive pulmonary disease) Disposition: ADMITTED INPATIENT Admitting Physician: Ho, Dany Condition: STABLE Referrals: SHAILA BARRIOS MD (PCP) MATT BARNES MD Aug 06, 2021 06:33
--- NOTE | 2021-08-06 07:22 | RAD ---
AP chest. HISTORY: COPD AP view of the chest was compared with a study from July 28. The heart is enlarged. Left pacemaker is unchanged. There are right lung infiltrates. There is a right pleural effusion. There has been littl e interval change compared to the recent study. IMPRESSION: 1. Cardiomegaly. 2. Small right effusion. 3. Mild right lung infiltrates without change. Electronically signed by: Darrell Meyer MD (08/06/2021 7:20 AM) [id number]
[2021-08-06 07:45] LABS: BASO # 0.1 x10^3/uL (0.0-0.2); BASO % 3 % (0-3); EOS # 0.2 x10^3/uL (0.0-0.7); EOS % 5 % (0-3); HEMATOCRIT 35.6 % (36.0-47.0); LYMPH # 0.6 x10^3/uL (1.0-4.8); LYMPH % 13 % (24-48); MEAN CORPUSCULAR HEMOGLOBIN 26 pg (25-35); MEAN CORPUSCULAR HGB CONC 31 g/dL (31-37); MEAN CORPUSCULAR VOLUME 83 fL (79-100); MONO # 0.5 x10^3/uL (0.0-1.1); MONO % 9 % (0-9); NEUT # 3.4 x10^3uL (1.8-7.7); NEUT % 70 % (31-73); PLATELET COUNT 274 x10^3/uL (140-400); RED BLOOD COUNT 4.27 x10^6/uL (3.50-5.40); RED CELL DISTRIBUTION WIDTH 22.7 % (11.5-14.5); WHITE BLOOD COUNT 4.9 x10^3/uL (4.0-11.0)
[2021-08-06 07:51] LABS: CALCIUM 8.9 mg/dL (8.5-10.1); CREATININE 0.9 mg/dL (0.6-1.0); GFR 76.3; POTASSIUM 3.6 mmol/L (3.5-5.1)
[2021-08-06 08:04] LABS: ALBUMIN 2.8 g/dL (3.4-5.0); ALBUMIN/GLOBULIN RATIO 0.6 (1.0-1.7); MAGNESIUM 1.9 mg/dL (1.8-2.4); TOTAL BILIRUBIN 3.5 mg/dL (0.2-1.0); TOTAL PROTEIN 7.2 g/dL (6.4-8.2)
[2021-08-06] MEDS ORDERED: methylPREDNISolone SOD SUCC PF 125 MG/2 ML VIAL. IV ONE (09:30)
[2021-08-06] MEDS ORDERED: FUROSEMIDE 40 MG/4 ML VIAL IVP ONE ×2 (09:30→09:45)
[2021-08-06 09:48] LABS: INFLUENZA A PATIENT NEGATIVE (NEGATIVE); INFLUENZA B PATIENT NEGATIVE (NEGATIVE)
[2021-08-06] MEDS ORDERED: ACETAMINOPHEN 325 MG TABLET PO PRN (10:00)
[2021-08-06] MEDS ORDERED: ONDANSETRON PF 4 MG/2 ML VIAL. IVP PRN (10:00)
[2021-08-06 10:39] LABS: CLARITY,URINE CLEAR; COLOR,URINE AMBER; GLUCOSE,URINE NEG (NEG)
[2021-08-06 10:40] LABS: BACTERIA,URINE 0 /HPF (0-FEW); NITRITE,URINE NEG (NEG); RBC,URINE 0 /HPF (0-2); SQUAMOUS EPITHELIAL CELL,UR MOD /LPF
[2021-08-06] MEDS: POTASSIUM CHLORIDE 20 MEQ TABLET.ER. PO SCH ×2 (10:59→20:41)
[2021-08-06 11:15] VITALS: BP 120/76
--- NOTE | 2021-08-06 11:21 | HP ---
DATE OF SERVICE: 08/06/2021 ADMIT DATE: 08/06/2021 ATTENDING PHYSICIAN: Dr. Galindo. CHIEF COMPLAINT: Shortness of breath. HISTORY OF PRESENT ILLNESS: The patient is a 66-year-old female admitted through the ED with increasing shortness of breath. She has a longstanding history of congestive heart failure. Her chest x-ray shows a significant cardiomegaly. There is the presence of a pacemaker defibrillator. There is a cephalization of vessels and bilateral pleural effusions. They could not rule out pneumonia. Empiric antibiotics were given. Clinically, she has heart failure. In talking with the patient's , she drinks a lot of fluids including soda. She does not monitor weights. The reason she is drinking is because of the Effexor use, which causes significant cholinergic side effects of dry mouth. This will be held. She was given Lasix in the ED with excellent diuresis. PAST MEDICAL HISTORY: Significant for acute on chronic respiratory failure, COPD, atypical chest pain, congestive heart failure, acute on chronic, systolic. SOCIAL HISTORY: She is a nonsmoker, nondrinker. ALLERGIES: SHE HAS ALLERGIES TO CARVEDILOL. CURRENT MEDICATIONS: Include aspirin, Lipitor, Plavix, docusate, erythromycin, Lasix 40 mg p.o. daily, melatonin, metoprolol, multivitamin, oxycodone, Protonix, potassium, Aldactone, Effexor 150 mg daily and vitamin D. FAMILY HISTORY: Noncontributory. REVIEW OF SYSTEMS: Significant for the gradual dyspnea with minimal exertion. She has significant orthopnea. She has a pacemaker defibrillator. I do not have access to records indicating her last echocardiogram. Regardless, she has a diminished ejection fraction with significant cardiomegaly as well as a chest x-ray evidence of CHF. PHYSICAL EXAMINATION: GENERAL: When I saw her, this is a pleasant female who was fairly alert and oriented. VITAL SIGNS: Her initial vital signs showed a blood pressure of 140/92, pulse is 110 and regular, respirations 22 unlabored, oxygen saturation 98% on 2 liters by nasal cannula. HEENT: Head is without trauma. Pupils are reactive. Sclerae nonicteric. Oropharynx is clear. NECK: Supple, no bruits. LUNGS: Diffuse wheezing bilaterally with rales at the bases. CARDIOVASCULAR: Showed distant heart tones, tachycardic rhythm. No gallops. ABDOMEN: Soft, obese, protuberant. No organomegaly. Bowel sounds are hypoactive. EXTREMITIES: Show 2+ pitting edema. NEUROLOGIC: Focally intact. Speech is fluent. SKIN: Warm and dry. PERTINENT LABORATORY STUDIES: Her hemoglobin was 11.0 g/dL with a white count 4900. Sodium 134 mEq, potassium 3.6. BNP was 4500. Serology negative for influenza A, B and coronavirus. ASSESSMENT: 1. A 66-year-old female with acute on chronic congestive heart failure. 2. Volume overload due to dietary indiscretion. 3. Probable ischemic cardiomyopathy. I do not know what last ejection fraction was on the echocardiogram. She does see a strategic development manager at [facility]. 4. History of pacemaker defibrillator. 5. Essential hypertension, currently normotensive. 6. History of chronic obstructive pulmonary disease. PLAN: 1. Admit to the inpatient unit. 2. Diuresis. Lasix has been ordered. 3. Serial chemistries. 4. Daily weights, I's and O's. 5. Continue some home meds. 6. Diabetic diet as tolerated. ELIE/ISRAEL/LILY DR: ELIE/martin TID: [id number]
[2021-08-06 15:00] VITALS: BP 127/77
[2021-08-06] MEDS: FUROSEMIDE 40 MG/4 ML VIAL IVP SCH (16:00)
[2021-08-06] MEDS ORDERED: NITROGLYCERIN SUBLINGUAL 0.4 MG BOTTLE OF 25. SL PRN (16:30)
[2021-08-06 19:50] VITALS: BP 132/78
[2021-08-06] MEDS: ATORVASTATIN CALCIUM 20 MG TABLET PO SCH (20:40)
[2021-08-06] MEDS: MELATONIN 3 MG TABLET PO PRN (20:41)
[2021-08-06 23:15] VITALS: BP 117/72
[2021-08-07] MEDS: oxyCODONE IR 5 MG TABLET PO PRN ×2 (01:33→21:21)
[2021-08-07 05:47] VITALS: BP 103/61
[2021-08-07 06:52] LABS: BASO % 1 % (0-3); EOS % 0 % (0-3); HEMATOCRIT 35.9 % (36.0-47.0); HEMOGLOBIN 11.2 g/dL (12.0-15.5); LYMPH # 0.4 x10^3/uL (1.0-4.8); LYMPH % 8 % (24-48); MEAN CORPUSCULAR HEMOGLOBIN 26 pg (25-35); MEAN CORPUSCULAR HGB CONC 31 g/dL (31-37); MEAN CORPUSCULAR VOLUME 82 fL (79-100); MONO # 0.4 x10^3/uL (0.0-1.1); MONO % 7 % (0-9); NEUT # 4.8 x10^3uL (1.8-7.7); NEUT % 85 % (31-73); PLATELET COUNT 310 x10^3/uL (140-400); RED BLOOD COUNT 4.39 x10^6/uL (3.50-5.40); RED CELL DISTRIBUTION WIDTH 22.7 % (11.5-14.5); WHITE BLOOD COUNT 5.7 x10^3/uL (4.0-11.0)
[2021-08-07 07:00] LABS: ALBUMIN 2.6 g/dL (3.4-5.0); ALBUMIN/GLOBULIN RATIO 0.6 (1.0-1.7); CALCIUM 8.5 mg/dL (8.5-10.1); CREATININE 0.9 mg/dL (0.6-1.0); GFR 76.3; POTASSIUM 3.7 mmol/L (3.5-5.1); TOTAL BILIRUBIN 3.4 mg/dL (0.2-1.0)
[2021-08-07] MEDS: FUROSEMIDE 40 MG/4 ML VIAL IVP SCH ×2 (08:19→14:15)
[2021-08-07] MEDS: POTASSIUM CHLORIDE 20 MEQ TABLET.ER. PO SCH (08:19)
[2021-08-07] MEDS: DOCUSATE SODIUM 100 MG CAPSULE PO SCH (10:59)
[2021-08-07] MEDS: CLOPIDOGREL BISULFATE 75 MG TABLET PO SCH (11:00)
[2021-08-07] MEDS: METOPROLOL SUCC 24HR ER 25 MG TAB.ER.24H. PO SCH (11:00)
[2021-08-07] MEDS: ASPIRIN CHEWABLE 81 MG TABLET. PO SCH (11:00)
[2021-08-07] MEDS: MULTIVITAMIN with MINERAL TABLET. PO SCH (11:00)
[2021-08-07] MEDS: PANTOPRAZOLE 40 MG TABLET. PO SCH (11:00)
[2021-08-07] MEDS: POTASSIUM BICARB 20 MEQ EFFERVESCENT TABLET. PO SCH (11:01)
[2021-08-07 11:44] VITALS: BP 115/69
[2021-08-07 11:49] LABS: % BANDS 2 % (0-9); % LYMPHS 9 % (24-48); % MONOS 4 % (0-10); % SEGS 85 % (35-66)
[2021-08-07 11:50] LABS: ANISOCYTOSIS MOD; PLT ESTIMATE ADEQUATE (ADEQUATE); POIKILOCYTOSIS SLIGHT
[2021-08-07 11:53] LABS: OVALOCYTES PRESENT
[2021-08-07 15:00] VITALS: BP 98/62
[2021-08-07 19:00] VITALS: BP 113/80
[2021-08-07] MEDS: MELATONIN 3 MG TABLET PO PRN (21:20)
[2021-08-07] MEDS: ATORVASTATIN CALCIUM 20 MG TABLET PO SCH (21:21)
--- NOTE | 2021-08-07 21:47 | PN ---
DATE: 08/07/2021 ATTENDING PHYSICIAN: Dr. Galindo. SUBJECTIVE: The patient is breathing better. 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 She actually wants to go home. OBJECTIVE FINDINGS: VITAL SIGNS: Blood pressure this morning is 117/72 mmHg. She is afebrile, pulse is 94 and regular, oxygen saturation 97% on 2 liters by nasal cannula. HEENT: Head is without trauma. Pupils are reactive. Sclerae nonicteric. Oropharynx is clear. NECK: Supple, no bruits. LUNGS: Good breath sounds. Minimal crackles at the bases. CARDIOVASCULAR: Regular heart tones. ABDOMEN: Soft. EXTREMITIES: Still show 2+ pitting edema. PERTINENT LABORATORY STUDIES: Chemistry panel. Her CBC was the same. Hemoglobin 11.2 grams. White count 5700. Electrolytes: Creatinine same at 0.9 mg percent, potassium 3.7 mEq, nonfasting blood sugar 113 mg/dL. ASSESSMENT: A 66-year-old female with; 1. Acute on chronic congestive heart failure, improved. 2. Volume overload due to dietary indiscretion. 3. Ischemic cardiomyopathy. 4. History of pacemaker defibrillator. 5. She has a cholinergic side effects from her medicines, specifically the Effexor. This has been stopped. 6. History of chronic obstructive pulmonary disease. PLAN: 1. Continue diuresis. 2. Daily weights with fluid restriction. 3. Serial chemistries. 4. Continue some home meds. 5. Diabetic diet. 6. Tentative discharge plans for tomorrow. REGI DR: ELIE/martin TID: [id number]
[2021-08-07 22:30] VITALS: BP 109/76
[2021-08-08 05:00] VITALS: BP 110/76
[2021-08-08] MEDS: PANTOPRAZOLE 40 MG TABLET. PO SCH (06:20)
[2021-08-08] MEDS: FUROSEMIDE 40 MG/4 ML VIAL IVP SCH (06:20)
[2021-08-08] MEDS: POTASSIUM BICARB 20 MEQ EFFERVESCENT TABLET. PO SCH (06:20)
[2021-08-08] MEDS: DOCUSATE SODIUM 100 MG CAPSULE PO SCH (06:20)
[2021-08-08] MEDS: oxyCODONE IR 5 MG TABLET PO PRN (06:20)
[2021-08-08] MEDS: MULTIVITAMIN with MINERAL TABLET. PO SCH (06:20)
[2021-08-08] MEDS: ASPIRIN CHEWABLE 81 MG TABLET. PO SCH (06:20)
[2021-08-08] MEDS: CLOPIDOGREL BISULFATE 75 MG TABLET PO SCH (06:20)
[2021-08-08 06:22] VITALS: BP 110/76
[2021-08-08] MEDS: METOPROLOL SUCC 24HR ER 25 MG TAB.ER.24H. PO SCH (06:22)
[2021-08-08 07:22] LABS: CALCIUM 8.8 mg/dL (8.5-10.1); GFR 67.5; POTASSIUM 3.4 mmol/L (3.5-5.1)
--- NOTE | 2021-08-08 12:07 | DS ---
DATE OF DISCHARGE: 08/08/2021 ATTENDING PHYSICIAN: Dr. Galindo. FINAL DISCHARGE DIAGNOSES: 1. Acute on chronic congestive heart failure, improved. 2. Volume overload due to dietary indiscretion. 3. Ischemic cardiomyopathy. 4. History of pacemaker defibrillator. 5. 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 6. History of chronic obstructive pulmonary disease. HISTORY AND PHYSICAL: The patient is a pleasant 66-year-old female admitted from home with increasing shortness of breath, dyspnea with exertion and orthopnea. Workup in the ED showed vascular congestion, cardiomegaly, placement of permanent pacemaker defibrillator. She was clinically what they could not rule out underlying pneumonia. She did not have pneumonia. She was treated with empiric antibiotics initially, this was eventually stopped. PHYSICAL EXAMINATION: Please see my dictated note. PERTINENT LABORATORY AND X-RAY STUDIES: Admission hemoglobin was 11.0 g/dL, white count 4900. Electrolytes within normal range. Creatinine was 0.9 mg %. Serial daily, chemistries, potassium 3.7 and 3.4 mEq per liter. She was asymptomatic. She was on supplement. This will be followed up. She did have a bilirubin of 3.5, most likely due to passive chronic congestion of the liver or the so-called cardiac cirrhosis. COURSE IN HOSPITAL: The patient was admitted. She was started on preload and afterload reduction. Increase IV Lasix with marked diuresis and clinical improvement. Supplemental oxygen was weaned off and she had adequate saturation prior to discharge. Ankle swelling, improved. Her lungs were clear. Therefore, on the third hospital day, her vital signs were quite stable. She had a blood pressure of 110/76, pulse was between 90 and 100 and regular. She was afebrile, oxygen saturation 96% on room air. She is discharged home with continued mainly the same medication. She will continue her scheduled aspirin, cholecalciferol, Plavix 75 mg daily, Lasix 40 mg daily, melatonin, metoprolol 25 mg daily, multivitamin, Protonix, potassium supplementation form of K-Dur 20 mEq daily and Aldactone. For now, I had her stop the Effexor and erythromycin base. She has a followup visit with Dr. Barrios, as scheduled. She was discharged then from our hospital in stable condition with explicit drug and followup care. Total discharge time spent is 39 minutes. ELIE/WILD/ANTOINETTE DR: Maile TID: [id number] CC: SHAILA BARRIOS
== END 2021-08-08 10:30 | disposition home or self-care (01) | DRG 291 ==
LOC: ER 05:44 → ER HOLD 10:07 → 1 SOUTH 10:46
PROVIDERS: ADMIT Hospitalist; ATTEND Hospitalist
DX: I11.0 Hypertensive heart disease with heart failure (principal); I50.23 Acute on chronic systolic (congestive) heart failure; J96.10 Chronic respiratory failure, unspecified whether with hypoxia or hypercapnia; E11.9 Type 2 diabetes mellitus without complications; I25.10 Atherosclerotic heart disease of native coronary artery without angina pectoris; I25.5 Ischemic cardiomyopathy; J44.9 Chronic obstructive pulmonary disease, unspecified; Z20.822 Contact with and (suspected) exposure to COVID-19; E05.90 Thyrotoxicosis, unspecified without thyrotoxic crisis or storm; F32.A Depression, unspecified; G89.29 Other chronic pain; K21.9 Gastro-esophageal reflux disease without esophagitis; M19.90 Unspecified osteoarthritis, unspecified site; Z87.891 Personal history of nicotine dependence; Z95.0 Presence of cardiac pacemaker; Z95.1 Presence of aortocoronary bypass graft; Z88.8 Allergy status to other drugs, medicaments and biological substances
CPT/HCPCS: 36415; 71045; 80048; 80053; 81001; 82803; 83605; 83735; 83880; 84484; 85007; 85025; 85379; 87086; 87428; 93005; 96365; 96375; J1940; J1956; J2930; U0003; 99285-25

== ENCOUNTER 2021-09-01 12:14 | Emergency (ER) | payer MEDICARE ==
[~2021-09-01] VITALS: Ht 162.6 cm; Wt 88.6 kg
--- NOTE | 2021-09-01 12:25 | PHYS DOC ---
Past History Past Medical History: Arthritis, Asthma, CAD, CHF, Constipation, COPD, Depression, Diabetes, Fibromyalgia, GERD, Hypertension, Hyperthyroid, UTI Additional Past Medical Histor: chronic pain Past Surgical History: Coronary Bypass Surgery, Other Additional Past Surgical Histo: defibrillator, EGD, CABG, right rotator cuff Smoking: Cigarettes, Quit Greater Than 1 Year Alcohol Use: None Drug Use: None General Adult HPI: HPI: Patient is a 66-year-old female who presents with bilateral knee pain. She has chronic arthritis and chronic pain and, in general. She reports that about a week ago she fell, she thinks she fell slightly onto her right knee. She reports swelling of both knees. She reports painful ambulation. She uses a walker to ambulate. No new fall or injury reported since that time. She denies chest pain, cough, dyspnea. She denies headache, dizziness, focal weakness, numbness or tingling. She has a scheduled appointment to see her PCP within the week. She contacted the office to see if she could be seen sooner today and I recommend she seek care at the ER. She has had previous arthrocentesis, she was requesting that today. She has an orthopedist that she is seen previously, but she has not seen them in about 2 years. She denies calf pain. She denies generalized lower extremity swelling, redness or warmth. She denies fevers or chills. Review of Systems: Review of Systems: Constitutional: Denies fever or chills HENT: Denies nasal congestion or sore throat Respiratory: Denies cough or shortness of breath Cardiovascular: Denies chest pain or edema GI: Denies abdominal pain, nausea, vomiting Musculoskeletal: Chronic back pain, chronic myalgias, chronic bilateral knee pain Integument: Denies rash, warmth, redness or wounds Neurologic: Denies headache, focal weakness or sensory changes, denies dizziness, syncope, head injury, focal motor weakness, numbness or tingling Psychiatric: Anxiety Allergies: Allergies: Allergies Coded Allergies Type Severity Reaction Last Updated Verified carvedilol Allergy Intermediate 07/04/21 Yes I S O L A T I O N *CONTACT* Allergy Unknown 07/21/21 Yes Physical Exam: PE: Constitutional: Well developed, well nourished, no acute distress, non-toxic appearance. [] HENT: Normocephalic, atraumatic Eyes: Conjunctiva normal, sclera anicteric Neck: Achy midline, neck is nontender, full range of motion Cardiovascular: +2 dorsalis pedis pulses bilaterally, warm and well-perfused. Lungs & Thorax: Respirations are nonlabore Skin: Warm, dry, no erythema, no rash. No open wounds. Back: Full range of motion, no deformity, no tenderness Extremities: No pitting edema. Mild soft tissue swelling of bilateral anterior knees. No warmth or erythema. Painful but active and passive flexion extension of both knees. No palpable crepitus or deformities. No patellar ballottement. No drainable effusion is noted. Compartments are soft. Bilateral calves are nontender. No palpable cord. Negative Homans. Pelvis is stable. No acute deformity noted. Neurologic: Alert and oriented X 3, normal motor function, normal sensory function, no focal deficits noted. [] Psychologic: Anxious, tearful, cooperative. EKG: EKG: [] Radiology/Procedures: Radiology/Procedures: IMAGING REPORT Signed PATIENT: ELIU CARSON ACCOUNT: [id number] : 1955 LOCATION: ER AGE: 66 SEX: F EXAM STATUS: REG ER ORD. PHYSICIAN: YVETTE CHAND DO REASON: bilat knee pain and swelling, hx rt knee replaced PROCEDURE: KNEE BILAT 3V Bilateral knees 3 views each. HISTORY: Bilateral knee pain and swelling Right knee 3 views were taken of the right knee. There is a total joint prosthesis in place. There is no acute fracture. There is no acute osseous abnormality. Left knee 3 views were taken of the left knee. There is marked osteoarthritis. There is joint space narrowing especially medially. There is hypertrophic spurring in all 3 compartments. There is a small joint effusion. There is no acute fracture. IMPRESSION: 1. Osteoarthritis left knee. 2. Small left knee joint effusion. 3. Total joint prosthesis on the right in good position. Electronically signed by: Darrell Meyer MD (09/01/2021 1:20 PM) [facility] DICTATED AND SIGNED BY: DARRELL MEYER MD DATE: 09/01/21 0864 CC: YVETTE CHAND DO; SHAILA BARRIOS MD ~ Heart Score: C/O Chest Pain: No Risk Factors: Risk Factors: DM, Current or recent (<one month) smoker, HTN, HLP, family history of CAD, obesity. Risk Scores: Score 0 - 3: 2.5% MACE over next 6 weeks - Discharge Home Score 4 - 6: 20.3% MACE over next 6 weeks - Admit for Clinical Observation Score 7 - 10: 72.7% MACE over next 6 weeks - Early Invasive Strategies Course & Med Decision Making: Course & Med Decision Making Pertinent Labs and Imaging studies reviewed. (See chart for details) Patient is given IM morphine for pain. There is no indication for arthrocentesis at this time. No acute fractures noted on imaging studies. She has significant osteoarthritis. I have discussed all of the findings, differential diagnosis and plan of care with her. She asked for something to help her sleep at night. I told her I would prescribe low-dose gabapentin for her to take nightly. I recommend she contact her PCP and orthopedist for further evaluation and treatment. No indication for further invasive exams, imaging or admission at this time. Return precautions are given. She verbalizes understanding. Emma Disclaimer: Emma Disclaimer: This electronic medical record was generated, in whole or in part, using a voice recognition dictation system. Departure Departure: Impression: Primary Impression: Chronic pain of both knees Additional Impression: Osteoarthritis of knees, bilateral Qualified Codes: M17.0 - Bilateral primary osteoarthritis of knee Disposition: HOME / SELF CARE / HOMELESS Condition: STABLE Referrals: SHAILA BARRIOS MD (PCP) Patient Instructions: Osteoarthritis Additional Instructions: You may continue taking your prescribed medications as needed/as directed. You should try to take the gabapentin at night to help with pain. Please contact your primary care doctor and your orthopedist for further evaluation and treatment of your chronic pain. Return for new injury or trauma, severe swelling, severe joint redness, temperature 100.4 or higher, chest pain, shortness of breath or other concerns. Scripts Gabapentin (GABAPENTIN ) 100 Mg Capsule 100 MG PO QHS for NEUROGENIC PAIN, #20 CAP Prov: YVETTE CHAND DO 09/01/21 YVETTE CHAND DO Sep 01, 2021 12:25
[2021-09-01 12:35] VITALS: BP 125/72
[2021-09-01] MEDS ORDERED: MORPHINE SULFATE 4 MG/ML DISP.SYRIN. IM ONE (12:45)
--- NOTE | 2021-09-01 13:23 | RAD ---
Bilateral knees 3 views each. HISTORY: Bilateral knee pain and swelling Right knee 3 views were taken of the right knee. There is a total joint prosthesis in place. There is no acute f racture. There is no acute osseous abnormality. Left knee 3 views were taken of the left knee. There is marked osteoarthritis. There is joint space narrowing e specially medially. There is hypertrophic spurring in all 3 compartments. There is a small joint effu gael. There is no acute fracture. IMPRESSION: 1. Osteoarthritis left knee. 2. Small left knee joint effusion. 3. Total joint prosthesis on the right in good position. Electronically signed by: Darrell Meyer MD (09/01/2021 1:20 PM) [facility]
[2021-09-01] MEDS ORDERED: GABA-585 PO (13:31)
== END 2021-09-01 15:19 | disposition home or self-care (01) ==
LOC: ER 12:14
DX: M17.0 Bilateral primary osteoarthritis of knee (principal); G89.29 Other chronic pain; J44.9 Chronic obstructive pulmonary disease, unspecified; I25.810 Atherosclerosis of coronary artery bypass graft(s) without angina pectoris; I11.0 Hypertensive heart disease with heart failure; I50.9 Heart failure, unspecified; E11.9 Type 2 diabetes mellitus without complications; M79.7 Fibromyalgia; K21.9 Gastro-esophageal reflux disease without esophagitis; E05.90 Thyrotoxicosis, unspecified without thyrotoxic crisis or storm; Z87.440 Personal history of urinary (tract) infections; Z87.891 Personal history of nicotine dependence; Z88.8 Allergy status to other drugs, medicaments and biological substances
CPT/HCPCS: 73562; 96372; 99283; J2270

== ENCOUNTER 2021-09-06 22:14 | Emergency (ER) | payer MEDICARE ==
[~2021-09-06 22:14] MED LIST changes: +GABA-585 PO
--- NOTE | 2021-09-06 22:25 | PHYS DOC ---
Past History Past Medical History: Arthritis, Asthma, CAD, CHF, Constipation, COPD, Depression, Diabetes, Fibromyalgia, GERD, Hypertension, Hyperthyroid, UTI Additional Past Medical Histor: chronic pain Past Surgical History: Coronary Bypass Surgery, Other Additional Past Surgical Histo: defibrillator, EGD, CABG, right rotator cuff Smoking: Cigarettes, Quit Greater Than 1 Year Alcohol Use: None Drug Use: None General Adult HPI: HPI: ".. My knees are killing me tonight.. I can't sleep.. this Rt. one is the worse.. I had this pain flare happen before... ".. " The weather make my joints go crazy with pain...".. " I can't stand the pain.. when it get like this.. it will keep me up all night.. " Patient is a 66 year old female who presents with above hx and complaints of arthritis pain exacerbation., Patient denies any trauma. Patient has long history of osteoarthritis of both knees. Has had reconstruction of her right knee. Patient has past medical history of asthma, coronary artery disease, CHF, constipation, COPD, depression, diabetes, fibromyalgia, GERD, hypertension, hypothyroidism, urinary tract infections, tobacco dependence. Patient has had previous surgeries of coronary artery bypass breast surgery, defibrillator placement, EGD, right rotator rotator cuff repair, right knee revision, and a rthroscopy. Patient denies any fever or chills. No recent travel. No recent changes in meds. Pt. follow s with [facility] as primary. Review of Systems: Review of Systems: Constitutional: Denies fever or chills Eyes: Denies change in visual acuity HENT: Denies nasal congestion or sore throat Respiratory: Denies cough or shortness of breath Cardiovascular: Denies chest pain or edema GI: Denies abdominal pain, nausea, vomiting, bloody stools or diarrhea : Denies dysuria Musculoskeletal: Complains of exacerbation bilateral knee pain Integument: Denies rash Neurologic: Denies headache, focal weakness or sensory changes Endocrine: Denies polyuria or polydipsia Lymphatic: Denies swollen glands Psychiatric: Denies depression or anxiety Family History: Family History: Noncontributory to presentation Current Medications: Current Meds: See nursing for home meds Allergies: Allergies: Allergies Coded Allergies Type Severity Reaction Last Updated Verified carvedilol Allergy Intermediate 07/04/21 Yes I S O L A T I O N *CONTACT* Allergy Unknown 07/21/21 Yes Physical Exam: PE: Constitutional: In moderate acute distress, non-toxic appearance. [] HENT: Normocephalic, atraumatic, bilateral external ears normal, oropharynx moist, no oral exudates, nose normal. [] Eyes: PERRLA, EOMI, conjunctiva normal, no discharge. [] Neck: Normal range of motion, no tenderness, supple, no stridor. [] Cardiovascular: Tachycardia heart rate regular rhythm, no murmur [] Lungs & Thorax: Bilateral breath sounds equal apex on auscultation [] midline scar. Pacer scar. Abdomen: Bowel sounds normal, soft, no tenderness, no masses, no pulsatile masses. Obese. Old surgical scars. Skin: Warm, dry, no erythema, no rash. [] Back: No tenderness, no CVA tenderness. [] Extremities: Bilateral knee tenderness, no cyanosis, no clubbing, ROM intact, no evidence of cellulitis. Chronic ankle edema. Right knee multiple surgery scars. Swollen. Crepitation with range of motion. No cording appreciated. Neurologic: Alert and oriented X 3, moves all extremities on request, does have distal sensory,, no focal deficits noted. [] Psychologic: Affect anxious, judgement normal, mood depressed. EKG: EKG: [] Radiology/Procedures: Radiology/Procedures: See prior knee x-rays [] Heart Score: C/O Chest Pain: N/A Risk Factors: Risk Factors: DM, Current or recent (<one month) smoker, HTN, HLP, family history of CAD, obesity. Risk Scores: Score 0 - 3: 2.5% MACE over next 6 weeks - Discharge Home Score 4 - 6: 20.3% MACE over next 6 weeks - Admit for Clinical Observation Score 7 - 10: 72.7% MACE over next 6 weeks - Early Invasive Strategies Course & Med Decision Making: Course & Med Decision Making Pertinent Labs and Imaging studies reviewed. (See chart for details) Patient take meds as prescribed by Dr. Barrios. Patient to give a trial of lidocaine patches to knees daily. Follow-up primary care. Return if any concerns. Return if there is any new injury, swelling, temperatures, dyspnea or other concerns. Impression: 1. Exacerbation of Chronic Knee pain- Rt > Lt. [] Emma Disclaimer: Emma Disclaimer: This electronic medical record was generated, in whole or in part, using a voice recognition dictation system. Departure Departure: Referrals: SHAILA BARRIOS MD (PCP) Scripts Lidocaine (Lidocaine PATCH ) 1 Each Adh..patch 1 EACH TP DAILY for FOR LOCAL PAIN, #30 PATCH REMOVE AFTER 12 HOURS Prov: CRISTINE MUÑOZ MD 09/07/21 Emma Disclaimer This chart was dictated in whole or in part using Voice Recognition software in a busy, high-work load, and often noisy Emergency Department environment. It may contain unintended and wholly unrecognized errors or omissions. CRISTINE MUÑOZ MD Sep 06, 2021 22:25
[2021-09-06] MEDS ORDERED: KETOROLAC 30 MG/ML VIAL. IM ONE (22:30)
[2021-09-06] MEDS ORDERED: MORPHINE SULFATE 10 MG/ML SYRINGE. SQ ONE (22:30)
[2021-09-06] MEDS ORDERED: methylPREDNISolone ACETATE 40 MG/ML VIAL. IM ONE (22:30)
[2021-09-07] MEDS ORDERED: LIDOCAINE (700MG/PATCH) PATCH. TD SCH (00:30)
[2021-09-07] MEDS ORDERED: LIDO700A21 TP (00:30)
== END 2021-09-07 00:57 | disposition home or self-care (01) ==
LOC: ER 22:14
DX: G89.29 Other chronic pain (principal); M25.561 Pain in right knee; M25.562 Pain in left knee; M17.0 Bilateral primary osteoarthritis of knee; J45.909 Unspecified asthma, uncomplicated; I25.810 Atherosclerosis of coronary artery bypass graft(s) without angina pectoris; I11.0 Hypertensive heart disease with heart failure; I50.9 Heart failure, unspecified; J44.9 Chronic obstructive pulmonary disease, unspecified; F32.9 Major depressive disorder, single episode, unspecified; E11.9 Type 2 diabetes mellitus without complications; M79.7 Fibromyalgia; K21.9 Gastro-esophageal reflux disease without esophagitis; E05.90 Thyrotoxicosis, unspecified without thyrotoxic crisis or storm; Z87.440 Personal history of urinary (tract) infections; Z87.891 Personal history of nicotine dependence; Z88.8 Allergy status to other drugs, medicaments and biological substances
CPT/HCPCS: 96372; 99284; J1030; J1885; J2270

== ENCOUNTER 2021-09-25 23:45 | Emergency (ER) | payer MEDICARE ==
[~2021-09-25] VITALS: Ht 162.6 cm; Wt 88.6 kg
[~2021-09-25 23:45] MED LIST changes: +LIDO700A21 TP
[2021-09-26] MEDS ORDERED: IV NORMAL SALINE 1,000ML 1,000 ML IV ONE ×2 (00:15→01:00)
[2021-09-26] MEDS ORDERED: ONDANSETRON PF 4 MG/2 ML VIAL. IVP ONE (01:00)
--- NOTE | 2021-09-26 01:13 | PHYS DOC ---
Past History Past Medical History: Arthritis, Asthma, CAD, CHF, Constipation, COPD, Depression, Diabetes, Fibromyalgia, GERD, Hypertension, Hyperthyroid, UTI Additional Past Medical Histor: chronic pain Past Surgical History: Coronary Bypass Surgery, Other Additional Past Surgical Histo: defibrillator, EGD, CABG, right rotator cuff Smoking: Cigarettes, Quit Greater Than 1 Year Alcohol Use: None Drug Use: None General Adult EDM: Chief Complaint: ABDOMINAL PAIN HPI: HPI: 66-year-old female presents with left ankle pain. Patient states that she started having ankle pain after getting out of the shower. She denies any falls or twisting it. She also complains of abdominal pain and headache. The patient has been seen in the emergency room multiple times for chronic pain. She is on pain medication. She provides no other significant history at this time. Review of Systems: Review of Systems: Constitutional: Denies fever or chills Eyes: Denies change in visual acuity HENT: Denies nasal congestion or sore throat Respiratory: Denies cough or shortness of breath Cardiovascular: Denies chest pain or edema GI: Generalized abdominal pain, constipation. Denies nausea, vomiting, bloody stools or diarrhea : Denies dysuria Musculoskeletal: Left ankle pain Integument: Denies rash Neurologic: Denies headache, focal weakness or sensory changes Endocrine: Denies polyuria or polydipsia Lymphatic: Denies swollen glands Psychiatric: Denies depression or anxiety Current Medications: Current Meds: Current Medications Medications (Trade) Dose Ordered Sig/Jacqueline Start Time Stop Time Status Last Admin Dose Admin Ondansetron HCl (Zofran) 4 mg 1X ONCE 09/26/21 01:00 09/26/21 01:01 DC Sodium Chloride 1,000 ml @ 1,000 mls/hr 1X ONCE 09/26/21 01:00 09/26/21 01:59 Allergies: Allergies: Allergies Coded Allergies Type Severity Reaction Last Updated Verified carvedilol Allergy Intermediate 07/04/21 Yes I S O L A T I O N *CONTACT* Allergy Unknown 07/21/21 Yes Physical Exam: PE: Constitutional: Well developed, well nourished, obese, no acute distress, non- toxic appearance. [] HENT: Normocephalic, atraumatic, bilateral external ears normal, oropharynx moist, no oral exudates, nose normal. [] Eyes: PERRLA, EOMI, conjunctiva normal, no discharge. [] Neck: Normal range of motion, no tenderness, supple, no stridor. [] Cardiovascular: Heart rate regular rhythm, no murmur [] Lungs & Thorax: Bilateral breath sounds clear to auscultation [] Abdomen: Bowel sounds normal, soft, no tenderness, no masses, no pulsatile masses. [] Skin: Warm, dry, no erythema, no rash. [] Back: No tenderness, no CVA tenderness. [] Extremities: No tenderness, no cyanosis, no clubbing, ROM intact, no edema. [] Neurologic: Alert and oriented X 3, normal motor function, normal sensory function, no focal deficits noted. [] Psychologic: Affect dramatic, judgement normal, mood normal. [] EKG: EKG: [] Radiology/Procedures: Radiology/Procedures: [] Impressions: XR ABDOMEN 1V Clinical Indication: Reason: constipation / Spl. Instructions: / History: Comparison: None. Findings: ICD leads are partially seen. There are median sternotomy wires. There is left atrial appendage occlusion device. There is mild cardiac enlargement. Small linear opacity in the peripheral left midlung may be atelectasis or scarring. No acute bone abnormality. There is no obvious pneumoperitoneum. There is stool in the left colon. There is a paucity of bowel gas decreasing sensitivity. There is no dilated small bowel. Aortoiliac calcifications are seen. IMPRESSION: Nonobstructive bowel gas pattern. Electronically signed by: Archie Montes De Oca MD (09/26/2021 1:57 AM) [facility] DICTATED AND SIGNED BY: ARCHIE MONTES DE OCA MD DATE: 09/26/21 0155 CC: JADIEL PRIETO DO; SHAILA BARRIOS MD ~ XR EXAM OF ANKLE_LEFT 3V Clinical Indication: Reason: ankle pain / Spl. Instructions: / History: Comparison: None. Findings: There is soft tissue swelling. Faint arterial calcifications. Ankle mortise is intact. No acute fracture is seen. The mineralization is normal. There is mild tibiotalar and subtalar degenerative change. There are moderate calcaneal bone spurs. There are dorsal osteophytes of the calcaneus and the navicular. IMPRESSION: No acute fracture. Electronically signed by: Archie Montes De Oca MD (09/26/2021 1:59 AM) [facility] DICTATED AND SIGNED BY: ARCHIE MONTES DE OCA MD DATE: 09/26/21 0157 CC: JADIEL RPIETO DO; SHAILA BARRIOS MD ~ Heart Score: C/O Chest Pain: N/A Risk Factors: Risk Factors: DM, Current or recent (<one month) smoker, HTN, HLP, family history of CAD, obesity. Risk Scores: Score 0 - 3: 2.5% MACE over next 6 weeks - Discharge Home Score 4 - 6: 20.3% MACE over next 6 weeks - Admit for Clinical Observation Score 7 - 10: 72.7% MACE over next 6 weeks - Early Invasive Strategies Course & Med Decision Making: Course & Med Decision Making Pertinent Labs and Imaging studies reviewed. (See chart for details) The patient's KUB and ankle x-ray are negative for acute findings. This is likely exacerbation of her chronic pain syndrome. The patient is already on chronic pain medication at home. She is stable for discharge at this time. [] Dragon Disclaimer: Dragon Disclaimer: This electronic medical record was generated, in whole or in part, using a voice recognition dictation system. Departure Departure: Impression: Primary Impression: Left ankle pain Disposition: HOME / SELF CARE / HOMELESS Condition: STABLE Referrals: SHAILA BARRIOS MD (PCP) JADIEL PRIETO DO September 26, 2021 01:13
[2021-09-26 01:22] LABS: CALCIUM 8.7 mg/dL (8.5-10.1); CREATININE 1.2 mg/dL (0.6-1.0); GFR 54.7; POTASSIUM 3.8 mmol/L (3.5-5.1)
[2021-09-26 01:28] LABS: ALBUMIN 2.4 g/dL (3.4-5.0); ALBUMIN/GLOBULIN RATIO 0.5 (1.0-1.7); TOTAL BILIRUBIN 4.4 mg/dL (0.2-1.0); TOTAL PROTEIN 7.5 g/dL (6.4-8.2)
[2021-09-26 01:40] LABS: BASO % 1 % (0-3); EOS # 0.2 x10^3/uL (0.0-0.7); EOS % 6 % (0-3); HEMATOCRIT 35.5 % (36.0-47.0); HEMOGLOBIN 11.3 g/dL (12.0-15.5); LYMPH # 0.8 x10^3/uL (1.0-4.8); LYMPH % 24 % (24-48); MEAN CORPUSCULAR HEMOGLOBIN 26 pg (25-35); MEAN CORPUSCULAR HGB CONC 32 g/dL (31-37); MEAN CORPUSCULAR VOLUME 80 fL (79-100); MONO # 0.4 x10^3/uL (0.0-1.1); MONO % 13 % (0-9); NEUT % 57 % (31-73); PLATELET COUNT 311 x10^3/uL (140-400); RED BLOOD COUNT 4.43 x10^6/uL (3.50-5.40); RED CELL DISTRIBUTION WIDTH 21.8 % (11.5-14.5); WHITE BLOOD COUNT 3.5 x10^3/uL (4.0-11.0)
--- NOTE | 2021-09-26 02:00 | RAD ---
XR ABDOMEN 1V Clinical Indication: Reason: constipation / Spl. Instructions: / History: Comparison: None. Findings: ICD leads are partially seen. There are median sternotomy wires. There is left atrial appendage occlu gael device. There is mild cardiac enlargement. Small linear opacity in the peripheral left midlung m ay be atelectasis or scarring. No acute bone abnormality. There is no obvious pneumoperitoneum. There is stool in the left colon. There is a paucity of bowel g as decreasing sensitivity. There is no dilated small bowel. Aortoiliac calcifications are seen. IMPRESSION: Nonobstructive bowel gas pattern. Electronically signed by: Archie Powell MD (09/26/2021 1:57 AM) [facility]
--- NOTE | 2021-09-26 02:01 | RAD ---
XR EXAM OF ANKLE_LEFT 3V Clinical Indication: Reason: ankle pain / Spl. Instructions: / History: Comparison: None. Findings: There is soft tissue swelling. Faint arterial calcifications. Ankle mortise is intact. No acute fract ure is seen. The mineralization is normal. There is mild tibiotalar and subtalar degenerative change. There are moderate calcaneal bone spurs. There are dorsal osteophytes of the calcaneus and the navic ular. IMPRESSION: No acute fracture. Electronically signed by: Archie Powell MD (09/26/2021 1:59 AM) [facility]
[2021-09-26 03:04] LABS: ANISOCYTOSIS PRESENT; MICROCYTOSIS SLIGHT; OVALOCYTES OCC; PLT ESTIMATE ADEQUATE (ADEQUATE); SCHISTOCYTES OCC; TARGET CELLS OCC
[2021-09-26 03:30] VITALS: BP 114/65
== END 2021-09-26 03:44 | disposition home or self-care (01) ==
LOC: ER 23:45
DX: M25.572 Pain in left ankle and joints of left foot (principal); R10.84 Generalized abdominal pain; R51.9 Headache, unspecified; K59.00 Constipation, unspecified; G89.29 Other chronic pain; M19.90 Unspecified osteoarthritis, unspecified site; J44.9 Chronic obstructive pulmonary disease, unspecified; I11.0 Hypertensive heart disease with heart failure; I50.9 Heart failure, unspecified; E11.9 Type 2 diabetes mellitus without complications; M79.7 Fibromyalgia; E05.90 Thyrotoxicosis, unspecified without thyrotoxic crisis or storm; I25.810 Atherosclerosis of coronary artery bypass graft(s) without angina pectoris; Z87.440 Personal history of urinary (tract) infections; Z87.891 Personal history of nicotine dependence; Z88.8 Allergy status to other drugs, medicaments and biological substances
CPT/HCPCS: 36415; 73610; 74018; 80053; 85025; 96360; 96361; 99284; J7030